=== PATIENT | male | born 1975 | race Two or more races ===

== ENCOUNTER 2016-05-22 06:51 | Emergency (ER) | payer MEDICAID ==
[~2016-05-22] VITALS: Ht 175.3 cm; Wt 70.0 kg
[2016-05-22] MEDS ORDERED: ACETAMINOPHEN 325MG TABLET PO STA (08:31)
[2016-05-22 09:20] LABS: HEMATOCRIT. 44.2 % (42.0-52.0); HEMOGLOBIN. 15.1 g/dL (14.0-18.0); MEAN CORPUSCULAR HEMOGLOBIN 31.1 pg (28.0-32.0); MEAN CORPUSCULAR HGB CONC 34.1 g/dL (31.0-37.0); MEAN CORPUSCULAR VOLUME 91.1 fL (80.0-94.0); MEAN PLATELET VOLUME 8.1 fl (7.4-10.4); PLATELET 233 x1000/uL (130-400); RED BLOOD CELL COUNT 4.85 mill/uL (4.7-6.1); RED CELL DISTRIBUTION WIDTH 13.4 % (11.6-14.6); WHITE BLOOD COUNT 16.6 x1000/uL (4.5-11.0)
[2016-05-22 09:22] LABS: DIFFERENTIAL COMMENT 1
[2016-05-22 09:29] LABS: ANION GAP 13; CALCIUM 9.2 mg/dL (8.5-10.1); CARBON DIOXIDE 25 mEq/L (21-32); CHLORIDE 101 mEq/L (98-107); INDEX HEMOLYSI 1 (1-3); INDEX ICTERIC 1 (1-4); INDEX LIPEMIC 1 (1-3); LIPASE 121 IU/L (73-393); UREA NITROGEN BLOOD 8 mg/dL (7-21)
[2016-05-22 09:34] LABS: ALANINE AMINOTRANSFERASE 16 IU/L (13-61); eGFR > 60 mL/min (>60)
[2016-05-22] MEDS ORDERED: KETOROLAC 30MG/ML VIAL IV STA (09:52)
[2016-05-22] MEDS ORDERED: SODIUM CHLORIDE 0.9% 1,000 ML IV ONE (09:52)
[2016-05-22 10:15] LABS: PLATELET ESTIMATE NORMAL
[2016-05-22 10:17] LABS: CLARITY URINE CLEAR (CLEAR); COLOR URINE YELLOW (YELLOW); GLUCOSE URINE NEGATIVE (NEGATIVE); KETONES URINE TRACE (NEGATIVE); LEUKOCYTE ESTERASE URINE NEGATIVE (NEGATIVE); NITRITE URINE NEGATIVE (NEGATIVE); OCCULT BLOOD URINE NEGATIVE (NEGATIVE); PH URINE >=9.0 (4.5-8.0); PROTEIN URINE TRACE (NEGATIVE); SPECIFIC GRAVITY URINE 1.021 (1.005-1.030)
[2016-05-22 10:32] LABS: MUCUS URINE 1+ /lpf (NONE/TRACE); SQUAMOUS EPITHELIAL CELL URINE RARE /lpf (RARE/1+)
[2016-05-22 10:38] LABS: BACTERIA URINE TRACE; RBC URINE NONE SEEN /hpf (0-2); WBC URINE 0-2 /hpf (0-2)
[2016-05-22 12:25] VITALS: BP 96/54
== END 2016-05-22 14:33 | disposition home or self-care (01) ==
LOC: ER 06:57
DX: B34.9 Viral infection, unspecified (principal)
CPT/HCPCS: 36415; 70450; 71010; 80053; 81001; 83690; 85025; 87804; 96361; 96374; 99285; J1885; J7030; Z7610